=== PATIENT | male | born 1955 | race Caucasian/White ===

== ENCOUNTER 2018-05-28 09:34 | Emergency (ER) | payer MEDICAID ==
[~2018-05-28] VITALS: Ht 165.1 cm; Wt 95.3 kg
[2018-05-28 09:51] VITALS: Ht 165.1 cm; Wt 95.3 kg
[2018-05-28 12:03] VITALS: BP 138/84
== END 2018-05-28 12:58 | disposition home or self-care (01) ==
LOC: ED 09:34
DX: F07.81 Postconcussional syndrome (principal); G89.29 Other chronic pain; M54.9 Dorsalgia, unspecified
CPT/HCPCS: J1885